=== PATIENT | female | born 1960 | race Caucasian/White ===

== ENCOUNTER → 2019-10-28 11:55 | Outpatient (BNVA) | payer OTHER, SELFPAY | PROVIDERS: Family Provider Nurse Practitioner; PCP Nurse Practitioner; Visit Provider Nurse Practitioner | DX: Z79.01 Long term (current) use of anticoagulants (principal); E78.2 Mixed hyperlipidemia; I10 Essential (primary) hypertension; E55.9 Vitamin D deficiency, unspecified; D69.9 Hemorrhagic condition, unspecified | CPT/HCPCS: 36416; 85610 ==

== ENCOUNTER → 2019-11-25 13:03 | Outpatient (BNVA) | payer OTHER, SELFPAY | PROVIDERS: Family Provider Nurse Practitioner; PCP Nurse Practitioner; Visit Provider Nurse Practitioner | DX: D69.9 Hemorrhagic condition, unspecified (principal) | CPT/HCPCS: 85610 ==

== ENCOUNTER → 2019-12-20 16:39 | Outpatient (BNVA) | payer OTHER, SELFPAY | PROVIDERS: Family Provider Nurse Practitioner; PCP Nurse Practitioner; Visit Provider Nurse Practitioner | DX: J98.01 Acute bronchospasm (principal); I10 Essential (primary) hypertension; R05 Cough; Z79.01 Long term (current) use of anticoagulants | CPT/HCPCS: 80053; 80061; 85025; 85610; 87804 ==

== ENCOUNTER → 2019-12-30 14:43 | Outpatient (BNVA) | payer OTHER, SELFPAY | PROVIDERS: Family Provider Nurse Practitioner; PCP Nurse Practitioner; Visit Provider Nurse Practitioner | DX: R05 Cough (principal); I51.7 Cardiomegaly | CPT/HCPCS: 71046 ==

== ENCOUNTER → 2020-02-10 11:52 | Outpatient (BNVA) | payer OTHER, SELFPAY | PROVIDERS: Family Provider Nurse Practitioner; PCP Nurse Practitioner; Visit Provider Nurse Practitioner | DX: Z79.01 Long term (current) use of anticoagulants (principal); Z86.718 Personal history of other venous thrombosis and embolism; H81.319 Aural vertigo, unspecified ear; I10 Essential (primary) hypertension | CPT/HCPCS: 85610 ==

== ENCOUNTER → 2020-04-13 17:38 | Outpatient (BNVA) | payer OTHER, SELFPAY | PROVIDERS: Family Provider Nurse Practitioner; PCP Nurse Practitioner; Visit Provider Nurse Practitioner | DX: R10.9 Unspecified abdominal pain (principal); I51.7 Cardiomegaly | CPT/HCPCS: 80053; 81003; 85025 ==

== ENCOUNTER → 2022-08-20 08:06 | Outpatient (BNVA) | payer OTHER, SELFPAY | PROVIDERS: Family Provider Nurse Practitioner; PCP Nurse Practitioner; Visit Provider Orthopaedic Surgery | DX: M17.0 Bilateral primary osteoarthritis of knee (principal) | CPT/HCPCS: 73560; 73565 ==

== ENCOUNTER 2022-09-18 11:52 | Outpatient (CLI) | payer OTHER, SELFPAY | END 2022-09-18 11:53 | disposition home or self-care (01) | LOC: RT 11-04 11:54 | PROVIDERS: PCP Nurse Practitioner; Visit Provider Orthopaedic Surgery | DX: Z13.6 Encounter for screening for cardiovascular disorders (principal) | CPT/HCPCS: 93005 ==

== ENCOUNTER 2022-09-25 14:30 | Outpatient (CLI) | payer OTHER, SELFPAY ==
--- NOTE | 2022-09-25 16:30 | CT_ITS ---
WS: [id number] CT LEFT KNEE, NONCONTRAST TECHNIQUE: Noncontrast CT of the LEFT knee to include the LEFT hip and ankle. CLINICAL INFORMATION: pre op planning COMPARISON: None. DLP: 739.[address] scans at [facility] use at least one of these dose optimization techniques: automated e xposure control; mA and/or kV adjustment per patient size (includes targeted exams where dose is matc hed to clinical indication); or iterative reconstruction. FINDINGS: Mild degenerative narrowing both hips. Advanced degenerative arthritis LEFT knee with hypertrophic sp urring. Hypertrophic patella. Moderate joint effusion. Joint space narrowing worse the medial joint c ompartment with [id number] articulation. Mild degenerative arthritis LEFT ankle. Vascular calcifica tion. Prominent abdominal wall/pelvic wall varices visualized in the lower anterior pelvic subcutaneo us soft tissues. CT/CT knee [facility] IMPRESSION: Images obtained for preoperative purposes.
== END 2022-09-25 14:31 | disposition home or self-care (01) ==
LOC: RAD 14:30
PROVIDERS: PCP Nurse Practitioner; Visit Provider Orthopaedic Surgery
DX: Z01.818 Encounter for other preprocedural examination (principal); M17.0 Bilateral primary osteoarthritis of knee
CPT/HCPCS: 73700

== ENCOUNTER 2022-09-30 10:25 | Observation (INO) | payer OTHER, SELFPAY ==
--- NOTE | 2022-09-18 10:33 | ECG_ITS ---
[facility] Test Date: 2022-09-18 Pat Name: Concetta Velasco Department: Room: Gender: Female Stone Splitter: : 1960 Requested By: Andry Kunz Order Number: [id number] Griffin MD: Vandana Scruggs M.D. Measurements Intervals [place] Rate: 63 P: 14 VT: 191 QRS: -12 QRSD: 90 T: -3 QT: 384 QTc: 394 Interpretive Statements SINUS RHYTHM LOW QRS VOLTAGE IN PRECORDIAL LEADS [QRS DEFLECTION < 1.0 mV IN CHEST LEADS] POSSIBLE RIGHT VENTRICULAR CONDUCTION DELAY [RSR (QR) IN V1/V2] POSSIBLE ANTERIOR MYOCARDIAL INFARCTION , OF INDETERMINATE AGE [30 ms Q WAVE IN V3/V4, OR R < 0.2 mV IN V4] No previous ECG available for comparison Electronically Signed On 09-19-2022 12:45:12 SECURITY FLEX UTILITY OFFICER by Vandana Scruggs M.D. [id number]
[2022-09-18 10:37] LABS: Basophils # 0.1 10^3/uL (0.0-0.1); Eosinophils # 0.1 10^3/uL (0.0-0.8); Eosinophils % 1.8 %; Hemoglobin 12.6 g/dL (11.5-15.3); Lymphocytes # 1.6 10^3/uL (0.8-4.8); Lymphocytes % 30.9 %; Mean Corpuscular HGB Conc 31.5 g/dL (30.0-36.0); Mean Corpuscular Hemoglobin 26.9 pg (28.0-34.0); Mean Corpuscular Volume 85.3 fl (81-99); Mean Platelet Volume 9.8 fL (7.4-10.4); Monocytes # 0.4 10^3/uL (0.2-0.9); Neutrophils # 2.97 10^3/uL (1.8-7.7); Neutrophils % 59.1 %; Nucleated Red Blood Cells % 0 %; Platelet Count 225 10^3/cmm (130-400); Red Blood Count 4.69 10^6/uL (4.1-5.3); Red Cell Distribution Width 13.5 % (12.1-15.1)
[2022-09-18 10:48] LABS: INR 0.98 (0.8-1.2)
[2022-09-18 10:55] LABS: Anion Gap 15.4 (5-19); Blood Urea Nitrogen 11 mg/dL (8-23); Calcium 9.7 mg/dL (8.5-10.5); Carbon Dioxide 27 mmol/L (22-29); Chloride 102 mmol/L (98-107); Glomerular Filtration Rate 72.9 mL/min (90-130); Glucose 88 mg/dL (65-115); Osmolality Calculated 289 mOsm/kg (285-295); Potassium 4.4 mmol/L (3.5-5.1); Sodium 140 mmol/L (136-145)
--- NOTE | 2022-09-18 13:10 | ANES.PREANE2 ---
Pre-Anesthetic Assessment Height/Weight: Height 1.65 m Weight 113.398 kg Operation Date: 09/30/22 10:05 Proposed Procedures p Jonas Robot Left Total Knee Arthroplasty 67021,M17.0(Left) - Yang Alvarez MD Familial anesthetic complications: none Was Beta Suzie taken within 24 hours: N/A Was Clonidine taken within 24 hours: N/A Social No alcohol and No tobacco Exam alert, oriented x 3, clear to auscultation bilaterally and regular rate & rhythm Airway Submandibular: within normal limits Cervical ROM: within normal limits Mallampati: Class II CV/HEM Deep Vein Thrombosis (h/o 20yrs ago) and Hypertension GI Gastroesophageal Reflux Disease Metabolic Hyperlipidemia and Morbid Obesity [facility] Osteoarthritis/DJD Anesthetic Plan ASA status: 3 Anesthesia: Regional (specify below) (SAB with adductor blk) Medications/Allergies Home Medications Medication Instructions Recorded Confirmed Last Taken Type lisinopril 20 1 tab PO DAILY #30 tabs 02/10/20 09/18/22 09/18/22 Rx mg-hydrochlorothiazide 12.5 mg tablet warfarin 4 mg tablet (Coumadin) 5 mg PO DAILY 08/20/22 09/18/22 09/17/22 History pantoprazole 40 mg tablet,delayed 40 mg PO DAILY 09/18/22 09/18/22 09/18/22 History release Allergies Allergy/AdvReac Type Severity Reaction Status Date / Time No Known Allergies Allergy Verified 08/20/22 07:59 [facility] Anesthesia Medical History (Updated 08/20/22 @ 08:39 by Yang Alvarez MD) Anticoagulant long-term use History of DVT (deep vein thrombosis) Hypertension Mixed hyperlipidemia Vitamin D deficiency Surgical History History of knee surgery Repair 1983 Family History Other Hypertension Social History Smoking and tobacco status: never smoked Second hand smoke exposure: Yes Smoking risk assessment/counseling performed?: Yes Alcohol intake: never Desire information about alcohol rehabilitation?: No Counseling given: No Desire information about substance/drug rehabilitation?: No Counseling given: No Adopted: No Caregiver/support person: No Lives independently: Yes Household members: spouse Housing: House Marital status: service: No Current occupational status: employed Current occupation: [employer] History of recent travel: No Current gender identity: Female Data Anesthesia 09/18/22 10:27 09/18/22 10:27 Short CBC 09/18/22 Range/Units 10:27 WBC 5.0 (4.0-10.0) 10^3/uL Hgb 12.6 (11.5-15.3) g/dL Hct 40.0 (37.0-47.0) % MCV 85.3 (81-99) fl Plt Count 225 (130-400) 10^3/cmm Neut % (Auto) 59.1 % Neut # (Auto) 2.97 (1.8-7.7) 10^3/uL BMP 09/18/22 10:27 Sodium 140 Potassium 4.4 Chloride 102 Carbon Dioxide 27 BUN 11 Creatinine 0.8 Glucose 88 Calcium 9.7 Coags 09/18/22 10:27 PT 13.30 INR 0.98 Cardiac Studies: No Data to Display
[2022-09-30] VITALS (20 sets, daily range): BP systolic 81–148; BP diastolic 46–83; PULSE 60–82; RESP 14–20; TEMP 36.1–36.6; O2SAT 94–100; BMI 41.3
[2022-09-30] MEDS: oxyCODONE 20 mg ER (12 HR) Tablet PO (06:52)
[2022-09-30] MEDS: sodium chloride 0.9% 1,000 ML 30 ML IV (06:52)
[2022-09-30] MEDS: gabapentin 300 mg Capsule PO ×2 (06:53→17:20)
[2022-09-30] MEDS: acetaminophen 500 mg Tablet 1000 MG PO ×2 (06:53→18:16)
[2022-09-30] MEDS: CELEcoxib 200 mg Capsule 400 MG PO (06:53)
[2022-09-30 07:01] LABS: INR 1.01 (0.8-1.2)
--- NOTE | 2022-09-30 07:07 | P.HP_ITS ---
Same Day Surgery H&P Indication for Procedure/HPI DATE OF PROCEDURE: September 30, 2022 CHIEF COMPLAINT/INDICATIONFOR SURGICAL PROCEDURE: Osteoarthritis left knee PREOP DIAGNOSIS: Osteoarthritis left knee PLANNED PROCEDURE: Operation Date: 09/30/22 07:00 Proposed Procedures p Jonas Robot Left Total Knee Arthroplasty 59203,M17.0(Left) - Yang Alvarez MD She states that she has had pain for approximately 3 years with no known injury.? He states the pain is generally symmetrical.? She states that her pain is in the anterior knee. She has pain with prolonged standing, walking, and bending. She states that she has been avoiding stairs, as it is significantly painful.? He states she is unable to do any walking much more than a few 100 yards.? 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 She has been taking Tylenol and Ibuprofen as needed for pain, which does not give her any relief.? She has a history of a deep venous thromboses in her right lower extremity 30 years ago and has been on Coumadin ever since.? She denies any pulmonary emboli and denies any studies documenting progression of her veinous disease.? He states a medical work-up was done and there was no medical cause for thromboembolic disease.? He does not take anti- inflammatories due to her chronic anticoagulation. Medications/Allergies* Home Medications Medication Instructions Recorded Confirmed Type warfarin 4 mg tablet (Coumadin) 5 mg PO DAILY 08/20/22 09/18/22 History pantoprazole 40 mg tablet,delayed 40 mg PO DAILY 09/18/22 09/18/22 History release Allergies/Adverse Reactions Allergy/AdvReac Type Severity Reaction Status Date / Time No Known Allergies Allergy Verified 08/20/22 07:59 Current Medications: Generic Name Dose Route Start Last Admin Trade Name Freq PRN Reason Stop Dose Admin Sodium Chloride 1,000 mls @ 30 mls/hr 09/30/22 06:00 09/30/22 06:52 Sodium Chloride 0.9% IV 10/01/22 05:59 30 mls/hr .Q24H ALBERTO Administration Pertinent History/Comorbid Conditions* Medical History (Updated 08/20/22 @ 08:39 by Yang Alvarez MD) Anticoagulant long-term use History of DVT (deep vein thrombosis) Hypertension Mixed hyperlipidemia Vitamin D deficiency Surgical History (Updated 12/20/19 @ 17:04 by MICK Martínez) History of knee surgery Repair 1982 Family History (Updated 12/20/19 @ 16:31 by KAY Yee) Hypertension Social History Smoking and tobacco status: never smoked Second hand smoke exposure: Yes Smoking risk assessment/counseling performed?: Yes Alcohol intake: never Desire information about alcohol rehabilitation?: No Counseling given: No Desire information about substance/drug rehabilitation?: No Counseling given: No Adopted: No Caregiver/support person: No Lives independently: Yes Household members: spouse Housing: House Marital status: service: No Current occupational status: employed Current occupation: [employer] History of recent travel: No Current gender identity: Female Pertinent Exam Findings alert, oriented x 3, clear to auscultation bilaterally and regular rate & rhythm KNEE LEFT] Tender bilateral medial knees and fairly diffuse tenderness about the right leg. RANGE OF MOTION: ? ? ? LEFT LIMB ? Extension:[15] ? Flexion: [70] Patellas track well Patient collateral ligaments are stable Stronger dorsalis pedis pulses bilaterally. MOTOR: Strong quadriceps hamstrings tibialis anterior and extensor houses longus strength SENSATION: Intact to light touch Recommendations Surgery/Procedure today Coding Level of Care Code Acute Employment Specialist/Program Manager for [employer]
--- NOTE | 2022-09-30 07:12 | P.ANESUD_ITS ---
Pre-Anesthetic Update Pre-Anesthetic Assessment: Date of Surgery/Procedure: 09/30/22 Preop Dodie gnosis: Osteoarthritis left knee Proposed Procedure: Operation Date: 09/30/22 07:00 Proposed Procedures p Jonas Robot Left Total Knee Arthroplasty 17135,M17.0(Left) - Yang Alvarez MD Any changes to Pre-Anesthetic Assessment?: No Last Intake: Intake Last Liquid Date 09/29/22 Last Liquid Time 23:45 Last Solid Date 09/29/22 Last Solid Time 13:30 Labs Last 48hrs: Coags 09/30/22 06:42 PT 13.60 INR 1.01 Vitals: Temperature 97.0 F L 09/30/22 06:31 Temperature Source Temporal Artery S can 09/30/22 06:31 Pulse Rate 76 09/30/22 06:31 Pulse Rhythm 09/30/22 06:35 Pulse Strength 3+ Normal 09/30/22 06:35 Respiratory Rate 18 09/30/22 06:31 Blood Pressure 148/83 09/30/22 06:31 Blood Pressure Cecilia n 104 09/30/22 06:31 Pulse Oximetry 98 09/30/22 06:31 Oxygen Delivery Me thod 09/30/22 06:35 Exam: Pre-Anes Outpt Exam: alert, oriented x 3, clear to auscultation bilaterally and regular rate & rhythm Other Pertinent Information: Other Pertinent Information: INR 1.01 Cardiac Studies: No Data to Display
[2022-09-30] MEDS: ceFAZolin 2,000 MG in sodium chloride 0.9% (plus) 50 ML 100 MG IV ×3 (07:30→23:07)
[2022-09-30] MEDS: tranexamic acid 1,000 mg/10mL SDV 1000 MG IV (08:10)
[2022-09-30] MEDS: tranexamic acid 1,000 mg/10mL SDV 1000 MG XX (08:31)
[2022-09-30] MEDS: ketorolac 30 mg/mL INJ XX (08:32)
[2022-09-30] MEDS: EPINEPHrine 1 mg/mL INJ XX (08:33)
--- NOTE | 2022-09-30 09:17 | ANES.PROC ---
Anesthesia Procedures Procedure/Date: 09/30/22 Nerve Block ^: Nerve Block 1: Main Anesthesia: spinal anesthesia block Time Out Performed: Yes Consent: requested by attending/covering physician, from patient, risks and benefits reviewed and patient agrees to proceed Nerve block location: adductor canal (left) Anesthesia monitors applied: pulse oximetry, EKG, BP cuff and oxygen Nerve block position: supine Anesthetic Used: ropivicaine 0.5% Amount of anesthesia used (mL): 20 Ultrasound used to: recognize landmarks Nerve Stimulator Used?: No Interscalene/Femoral BLK: 4 stimuplex 21 g needle used for position and inplane approach Injection: neg aspiration of heme Patient Tolerated Procedure: well Complications: none
--- NOTE | 2022-09-30 10:12 | PM.OP ---
Operative Report Date of procedure: September 30, 2022 Pre-op diagnosis: Preop Diagnosis Osteoarthritis left knee Post-op diagnosis: same Post-op diagnosis: Same Post-op findings: Same Procedure done: [] total knee arthroplasty Implants: [place] Triathalon total knee arthroplasty components were used includin) Size 4 triathalon cruciate retaining femoral component 2) Size 5 Tritanium tibial component 3) Size 5/9 mm thickness CS tibial bearing insert Pathology: none sent Surgeon: Yang Alvarez [employer] Operator: Александр Gutiérrez [employer] Operator: The nurse practitioner the nurse practitioner assisted with critical portions of the case including positioning, draping, exposure, component implantation, closure and dressing application and is present through the entirety of the case. Anesthesia: Nerve Block (Spinal, adductor canal block) Estimated blood loss (mL): 200 Findings: The patient eburnated bone over the medial femoral condyleand medial tibial plateau with 16 degrees of varus deformity. There was eburnation of the far lateral facet of the patella overall patellar anatomy was reasonably preserved Condition: stable Disposition: PACU Procedure: The patient was taken to the operating room. Patient was given 1 g of tranexamic acid and 2 g of Ancef. The above anesthesia provided by the anesthesia service. A timeout was performed. The patient was prepped and draped in the usual fashion with the lower extremity exposed. A anterior incision was made, midline, from a point proximal to the patella to the distal tibial tubercle. The knee was entered through a medial parapatellar approach. The patella could be displaced laterally and the knee flexed. The patellar fat pad was resected to provide better visibility. Retractors were placed medially and laterally adjacent to the tibial plateau. At a point approximately 8 cm above the patella, 2 small incisions were made with a scalpel blade and 2 long threaded pins were placed into the anterior medial femur engaging both cortices. The femoral arrays were placed over these pins and secured. At a point 8 cm distal to the tibial tubercle. 2 shorter bicortical threaded pins were placed across the anterior medial tibia and the tibial arrays placed. A checkpoint was made just proximal and medial to the medial femoral condyle and just medial to the tibial plateau. Small osteotomes were placed in the joint in both flexion and extension to determine ligamentous laxity. As the patient had significant varus deformity initially more aggressive release of all of the deep in the proximal superficial medial collateral ligament was performed. Dissection was then carried out with a Chavez elevator releasing attachments from the posterior medial tibia this allowed for a correction of the tibia to a more acceptable 4 degrees of varus. The tibia was then placed in 2 degrees of varus and the femoral component externally rotated 3 degrees, resecting slope more from the posterior medial condyle to correct imbalances and flexion.. The Advebs robot was then introduced to the field and the femur and tibia cut in accordance with our plan. he [employer] Fastseal was then used to provide hemostasis, particularly about the posterior capsule. A trial with the above components provided excellent stability and full range of motion. The femur was then prepared for the femoral pegs of the component in the tibia for the tibial component. The femur and tibia were then press-fit into place. An osteotome was used to remove the lateral 8 mm of the patella to minimize chances of later impingement. A neurectomy was accomplished circumferentially about the patella with electrocautery and lateral osteophytes removed. Surfaces were cleaned with a gentamicin solution. The femur and tibia were then press-fit into place. The posterior capsule and collateral ligaments were then injected with a solution of 100 mL of 0.2% ropivacaine, 1 mL of a 1:1000 epinephrine solution, 30 mg of Toradol, and 1 g of tranexamic acid. Final polyethylene component was then snapped into place into the tibia. The extensor retinaculum subcutaneous tissues were s closed with a running 1 Stratafix interrupted 1 Ethibond. The skin was closed with a running 4-0 Stratafix. The wound was covered with a Dermabond Prineo dressing. It was covered with 4xrs and a compressive Tubigauze was applied. The patient was taken to recovery room in stable condition.
--- NOTE | 2022-09-30 10:22 | XR_ITS ---
WS: [id number] EXAMINATION: XR knee LT 1-2V 38929 DATE: 09/30/2022 10:34 AM CLINICAL HISTORY: Recent total knee arthroplasty TECHNIQUE: 2 views of the left knee were obtained. COMPARISON: 08/20/2022 X-RAY FINDINGS: Left total knee prosthetic components appear in satisfactory position. There is intra -articular gas, periarticular soft tissue gas and postsurgical soft tissue edema. Linear calcificatio n posteriorly unchanged from prior study. XR/XR knee LT 1-2V 82621 IMPRESSION: Satisfactory postsurgical appearance of left total knee arthroplasty.
[2022-09-30] MEDS: sodium chloride 0.9% 1,000 ML 999 ML IV (13:33)
[2022-09-30] MEDS: oxyCODONE 5 mg IR Tab/Cap PO (14:36)
--- NOTE | 2022-09-30 15:14 | ANE.PACU2 ---
Inpatient post-anesthesia follow up: Airway intact: Yes Vital signs: Temperature 97.5 F Pulse Rate 71 Respiratory Rate 18 Blood Pressure 97/56 Pulse Oximetry 100 Oxygen Delivery Me thod Room Air Oxygen Flow Rate 6 Fraction of Inspir ed Oxygen Hydration adequate: Yes Nausea and vomiting: No Pain level: 2 Mental status: Baseline
--- NOTE | 2022-09-30 21:08 | PC.NURSE ---
No complaints of pain from patient. Surgical incision clean dry and intact. Pedal pulses 2+, extremities warm. Patient reports several voids post-surgery. Patient educated to press call light if patient has any needs, and had no further needs at this time.
[2022-09-30] MEDS: CELEcoxib 200 mg Capsule PO (23:06)
[2022-10-01] VITALS: BP 105/65; PULSE 67; RESP 16; TEMP 36.6; O2SAT 96
[2022-10-01] MEDS: acetaminophen 500 mg Tablet 1000 MG PO (02:58)
[2022-10-01 04:00] VITALS: BP 116/67; PULSE 67; RESP 16; TEMP 36.6; O2SAT 97
[2022-10-01] MEDS: ceFAZolin 2,000 MG in sodium chloride 0.9% (plus) 50 ML 100 MG IV (06:30)
--- NOTE | 2022-10-01 06:52 | P.DS_ITS ---
Discharge Providers Date of Admission: 09/30/22 10:25 Date of Discharge: October 01, 2022 Attending Provider at Admission: Yang Alvarez MD Attending Provider at Discharge: Yang Alvarez MD Primary Care Provider: MICK Martínez Diagnoses at Discharge Discharge Diagnosis (1) Status post left knee replacement: Status: Acute (2) Degenerative joint disease of left knee: Status: Acute (3) History of DVT (deep vein thrombosis): Status: Chronic Reason for Visit Reason for Visit: M17.0 Hospital Course Hospital Course The patient tolerated surgery well. They remained hemodynamically stable. They was Coumadin and foot pumps for DVT prophylaxis. The patient was mobilized with therapy beginning the day of surgery and by the first postoperative day independent with the walker. As the pain was adequately controlled and they were fully mobile they were discharged home. Physical Exam Narrative: On the day of discharge the knee incision was clean. They had no drainage. There is minimal swelling in the thigh and knee and the calf. No distal neurovascular deficits were noted Discharge Data Studies Completed and Pending Completed Studies During Hospitalization Category Date Time Status XR knee LT 1-2V 12833 Routine Exams 09/30/22 10:22 Completed Radiology Impressions Knee X-Ray 09/30/22 10:22 IMPRESSION: Satisfactory postsurgical appearance of left total knee arthroplasty. Laboratory Results WBC 5.0 10^3/uL (4.0-10.0) 09/18/22 10:27 RBC 4.69 10^6/uL (4.1-5.3) 09/18/22 10:27 Hgb 11.0 g/dL (11.5-15.3) L 10/01/22 01:01 Hct 40.0 % (37.0-47.0) 09/18/22 10:27 MCV 85.3 fl (81-99) 09/18/22 10:27 MCH 26.9 pg (28.0-34.0) L 09/18/22 10:27 MCHC 31.5 g/dL (30.0-36.0) 09/18/22 10:27 RDW 13.5 % (12.1-15.1) 09/18/22 10:27 Plt Count 225 10^3/cmm (130-400) 09/18/22 10:27 MPV 9.8 fL (7.4-10.4) 09/18/22 10:27 Neut % (Auto) 59.1 % 09/18/22 10:27 Lymph % (Auto) 30.9 % 09/18/22 10:27 Bradley % (Auto) 7.0 % 09/18/22 10:27 Eos % (Auto) 1.8 % 09/18/22 10:27 Baso % (Auto) 1.0 % 09/18/22 10:27 Neut # (Auto) 2.97 10^3/uL (1.8-7.7) 09/18/22 10:27 Lymph # (Auto) 1.6 10^3/uL (0.8-4.8) 09/18/22 10:27 Bradley # (Auto) 0.4 10^3/uL (0.2-0.9) 09/18/22 10:27 Eos # (Auto) 0.1 10^3/uL (0.0-0.8) 09/18/22 10:27 Baso # (Auto) 0.1 10^3/uL (0.0-0.1) 09/18/22 10:27 Nucleated RBC % (auto) 0 % 09/18/22 10:27 Nucleated RBCs # 0.0 /100WBC 09/18/22 10:27 PT 13.60 SECONDS (12.1-14.9) 09/30/22 06:42 INR 1.01 (0.8-1.2) 09/30/22 06:42 Sodium 140 mmol/L (136-145) 09/18/22 10:27 Potassium 4.4 mmol/L (3.5-5.1) 09/18/22 10:27 Chloride 102 mmol/L (98-107) 09/18/22 10:27 Carbon Dioxide 27 mmol/L (22-29) 09/18/22 10:27 Anion Gap 15.4 (5-19) 09/18/22 10:27 BUN 11 mg/dL (8-23) 09/18/22 10:27 Creatinine 0.8 mg/dL (0.5-0.9) 09/18/22 10:27 GFR Calculation 72.9 mL/min (90-130) L 09/18/22 10:27 Glucose 88 mg/dL (65-115) 09/18/22 10:27 Calculated Osmolality 289 mOsm/kg (285-295) 09/18/22 10:27 Calcium 9.7 mg/dL (8.5-10.5) 09/18/22 10:27 Vitals Last Vital Signs Temp 98 F 10/01/22 04:00 Pulse 67 10/01/22 04:00 Resp 16 10/01/22 04:00 BP 116/67 10/01/22 04:00 Pulse Ox 97 10/01/22 04:00 O2 Del Method 09/30/22 19:49 O2 Flow Rate 6 09/30/22 10:28 Discharge Plan Discharge Patient Disposition: Home Condition: Stable Prescriptions: New oxycodone 5 mg Tablet 5 mg PO Q4H PRN (Reason: Moderate Pain) 7 Days Qty: 40 0RF acetaminophen 500 mg Tablet 1,000 mg PO Q8H 14 Days Qty: 84 0RF celecoxib 200 mg Capsule 200 mg PO Q12H 14 Days Qty: 28 0RF gabapentin 300 mg Capsule 300 mg PO BID 7 Days Qty: 14 0RF Continued lisinopril-hydrochlorothiazide 20-12.5 mg tablet 1 tab PO DAILY Qty: 30 2RF warfarin [Coumadin] 4 mg tablet 5 mg PO DAILY pantoprazole 40 mg tablet,delayed release (DR/EC) 40 mg PO DAILY Discharge Orders: Discharge Order (Routine); Ordered 10/01/22 Ordered By: Yang Alvarez Other Ambulatory Orders: Physical Therapy Eval and Treat Outpatient (Order) Timeframe: 2 Weeks Facility: [facility] - Location: Physical Therapy Ordered By: Yang Alvarez Referrals: Александр Gutiérrez FNP [Physician Collection Specialist] - 2 weeks Discharge Diet: Advance as tolerated Discharge Activity: Limit activity as instructed Patient Instructions: Opioid Safety Activity Restrictions/Additional Instructions: Okay to shower as long as incision free of drainage Keep Tubigauze sleeve in place for swelling. Remove top dressing in 48 hours. Leave skin glue in place Apply FirstIce up to 20 min/hr for pain and swelling Take Celebrex twice a day for the next 15 days for pain , discontinue other anti-inflammatories Take Neurontin twice a day for 7 days. Take Tylenol 500mg (2 tabs) as needed 3 times a day for mild pain take oxycodone for breakthrough pain. Exercises per physical therapy. May weight-bear as tolerated on total knee arthroplasty IF HAVE ANY PROBLEMS OR QUESTIONS CALL HOSPITAL BOAT OUTBOARD ENGINE MECHANIC AT AND ASK TO HAVE DR. SURY TUCKER. Discharge Attestations Time Spent in Discharge Care*: other Quality Metrics Clinical Quality Measures [ No reported AMI, CVA or VTE this stay] Coding Level of Care Code Acute Chg FW DC note Diagnoses Status post left knee replacement Z96.652 Degenerative joint disease of left knee M17.12 History of DVT (deep vein thrombosis) Z86.712
[2022-10-01 09:20] VITALS: BP 116/67; PULSE 67; RESP 16; TEMP 36.6; O2SAT 97
[2022-10-01 10:02] VITALS: PULSE 73; RESP 16; O2SAT 96
[2022-10-01] MEDS: warfarin 2.5 mg Tablet 5 MG PO (10:28)
[2022-10-01] MEDS: lisinopril 20 mg Tablet PO (10:28)
[2022-10-01] MEDS: pantoprazole DR 40 mg Tablet PO (10:28)
[2022-10-01] MEDS: gabapentin 300 mg Capsule PO (10:28)
[2022-10-01] MEDS: hydroCHLOROthiazide 25 mg Tablet PO (10:28)
== END 2022-10-01 12:00 | disposition home or self-care (01) ==
LOC: MEDSURG 10:25
PROVIDERS: Anesthesiology; Admitting Provider Orthopaedic Surgery; PCP Nurse Practitioner; Visit Provider Orthopaedic Surgery
PROC: 8E0Y0CZ Robotic Assisted Procedure of Lower Extremity, Open Approach (ICD-10-PCS; CPT 27447; principal; 2022-09-30 07:00)
DX: M17.12 Unilateral primary osteoarthritis, left knee (principal); Z86.718 Personal history of other venous thrombosis and embolism; I10 Essential (primary) hypertension; E66.01 Morbid (severe) obesity due to excess calories; Z68.41 Body mass index [BMI] 40.0-44.9, adult; Z79.01 Long term (current) use of anticoagulants; E78.2 Mixed hyperlipidemia; K21.9 Gastro-esophageal reflux disease without esophagitis
CPT/HCPCS: 27447; 36415; 73560; 80048; 85018; 85025; 85610; 97110; 97116; 97161; 97165; A9281; C1776; G0378; J0171; J0690; J1580; J1885; J2704; J2795; J3490; J3535; J7030

== ENCOUNTER → 2022-11-13 08:05 | Outpatient (BNVA) | payer OTHER, SELFPAY | PROVIDERS: PCP Nurse Practitioner; Visit Provider Nurse Practitioner Family | DX: Z96.652 Presence of left artificial knee joint (principal) | CPT/HCPCS: 73560; 73565 ==

== ENCOUNTER → 2023-02-11 08:07 | Outpatient (BNVA) | payer OTHER, SELFPAY | PROVIDERS: PCP Nurse Practitioner; Visit Provider Nurse Practitioner Family | DX: Z96.652 Presence of left artificial knee joint (principal); M17.11 Unilateral primary osteoarthritis, right knee | CPT/HCPCS: 73560; 73565 ==

== ENCOUNTER → 2023-03-04 14:38 | Outpatient (BNVA) | payer OTHER, SELFPAY | PROVIDERS: PCP Nurse Practitioner; Visit Provider Orthopaedic Surgery | DX: M17.11 Unilateral primary osteoarthritis, right knee (principal); Z96.652 Presence of left artificial knee joint | CPT/HCPCS: 80048; 85025 ==

== ENCOUNTER → 2023-03-06 10:48 | Outpatient (BNVA) | payer OTHER, SELFPAY | PROVIDERS: PCP Nurse Practitioner; Visit Provider Clinical Nurse Specialist Adult Health | DX: Z79.01 Long term (current) use of anticoagulants (principal) | CPT/HCPCS: 85610 ==

== ENCOUNTER 2023-03-20 07:36 | Outpatient (CLI) | payer OTHER, SELFPAY ==
--- NOTE | 2023-03-20 07:30 | CT_ITS ---
WS: [id number] CT RIGHT KNEE, NONCONTRAST TECHNIQUE: Noncontrast CT of the RIGHT knee to include the RIGHT hip and ankle. [facility] CLINICAL INFORMATION: pre op planning COMPARISON: None. DLP: 948.[address] scans at [facility] use at least one of these dose optimization techniques: automated e xposure control; mA and/or kV adjustment per patient size (includes targeted exams where dose is matc hed to clinical indication); or iterative reconstruction. FINDINGS: Mild degenerative arthritis both hips. Normal visualized pubic rami. Normal sigmoid colon. Sigmoid di verticulosis. Small to moderate suprapatellar effusion. Advanced osteoarthritis RIGHT knee worse medi al joint compartment. Hypertrophic patella. Hypertrophic changes along the joint line. Vascular calci fication. Soft tissue edema about the knee. CT/CT knee RT wo con* [id number] IMPRESSION: Images obtained for preoperative purposes.
== END 2023-03-20 07:37 | disposition home or self-care (01) ==
PROVIDERS: Visit Provider Orthopaedic Surgery
DX: M17.11 Unilateral primary osteoarthritis, right knee (principal)
CPT/HCPCS: 73700

== ENCOUNTER 2023-03-31 13:15 | Observation (INO) | payer OTHER, SELFPAY ==
[2023-03-20 09:08] VITALS: BMI 41.1
--- NOTE | 2023-03-20 17:09 | P.ANESASSM_ITS ---
Pre-Anesthetic Assessment Height/Weight: Height 1.65 m Weight 112.037 kg Operation Date: 03/31/23 10:05 Proposed Procedures p right total knee makoplasty/ 22523, M17.11(Right) - Yang Alvarez MD Familial anesthetic complications: none Was Beta Suzie taken within 24 hours: N/A Was Clonidine taken within 24 hours: N/A Social No alcohol and No tobacco Exam alert, oriented x 3, clear to auscultation bilaterally and regular rate & rhythm Airway Submandibular: within normal limits Cervical ROM: within normal limits Mallampati: Class II Dentition: full CV/HEM Deep Vein Thrombosis and Hypertension GI Gastroesophageal Reflux Disease Metabolic Hyperlipidemia and Morbid Obesity [facility] Osteoarthritis/DJD Anesthetic Plan ASA status: 3 Anesthesia: Regional (specify below) (SAB with adductor blk) Medications/Allergies Home Medications Medication Instructions Recorded Confirmed Last Taken Type lisinopril 20 1 tab PO DAILY #30 tabs 02/10/20 03/20/23 03/20/23 Rx mg-hydrochlorothiazide 12.5 mg tablet warfarin 4 mg tablet (Coumadin) 5 mg PO DAILY 08/20/22 03/20/23 03/19/23 History pantoprazole 40 mg tablet,delayed 40 mg PO DAILY 09/18/22 03/20/23 03/19/23 History release Allergies Allergy/AdvReac Type Severity Reaction Status Date / Time No Known Allergies Allergy Verified 03/06/23 09:59 [facility] Anesthesia Medical History (Updated 03/06/23 @ 13:41 by Teddy Butler NP) Anticoagulant long-term use DVT (deep venous thrombosis) Provoked DVT 30 years ago History of DVT (deep vein thrombosis) Hypertension Mixed hyperlipidemia Vitamin D deficiency Surgical History History of knee surgery Repair 1983 Status post left knee replacement Family History (Updated 03/06/23 @ 10:00 by Teddy Butler NP) Other Hypertension Denies family history of Clotting disorder Anesthesia complication Stroke Social History Smoking and tobacco status: never smoked Second hand smoke exposure: Yes Smoking risk assessment/counseling performed?: Yes Alcohol intake: never Desire information about alcohol rehabilitation?: No Counseling given: No Substance/Drug Use: never Desire information about substance/drug rehabilitation?: No Counseling given: No Adopted: No Caregiver/support person: No Lives independently: Yes Household members: spouse Housing: House Marital status: service: No Current occupational status: employed Current occupation: [employer] Do you think of yourself as: Straight/Heterosexual Current gender identity: Female Data Anesthesia Cardiac Studies: No Data to Display
[2023-03-31] VITALS (15 sets, daily range): BP systolic 104–146; BP diastolic 54–83; PULSE 61–84; RESP 12–18; TEMP 36.1–36.7; O2SAT 94–100; BMI 41.1
[2023-03-31] MEDS: sodium chloride 0.9% 1,000 ML 30 ML IV (08:51)
[2023-03-31] MEDS: gabapentin 300 mg Capsule PO ×2 (08:52→17:42)
[2023-03-31] MEDS: oxyCODONE 20 mg ER (12 HR) Tablet PO (08:52)
[2023-03-31] MEDS: CELEcoxib 200 mg Capsule 400 MG PO (08:52)
[2023-03-31] MEDS: acetaminophen 500 mg Tablet 1000 MG PO ×2 (08:53→16:29)
--- NOTE | 2023-03-31 09:24 | P.ANESUD_ITS ---
Pre-Anesthetic Update Pre-Anesthetic Assessment: Date of Surgery/Procedure: 03/31/23 Preop Dodie gnosis: Osteoarthritis right knee Proposed Procedure: Operation Date: 03/31/23 10:05 Proposed Procedures p right total knee makoplasty/ 62137, M17.11(Right) - Yang Alvarez MD Any changes to Pre-Anesthetic Assessment?: No Last Intake: Intake Last Liquid Date 03/30/23 Last Liquid Time 22:00 Last Solid Date 03/30/23 Last Solid Time 21:45 Vitals: Temperature 97 F L 03/31/23 08:30 Temperature Source Temporal Artery S can 03/31/23 08:30 Pulse Rate 69 03/31/23 08:30 Respiratory Rate 16 03/31/23 08:30 Blood Pressure 146/83 03/31/23 08:30 Blood Pressure Cecilia n 104 03/31/23 08:30 Pulse Oximetry 95 03/31/23 08:30 Oxygen Delivery Me thod Room Air 03/31/23 08:30 Exam: Pre-Anes Outpt Exam: alert, oriented x 3, clear to auscultation bilaterally and regular rate & rhythm Cardiac Studies: No Data to Display
--- NOTE | 2023-03-31 09:24 | ANES.PROC ---
Anesthesia Procedures Procedure/Date: 03/31/23 Nerve Block ^: Nerve Block 1: Main Anesthesia: spinal anesthesia block Time Out Performed: Yes Consent: requested by attending/covering physician, from patient, from other, risks and benefits reviewed and patient agrees to proceed Nerve block location: adductor canal (R) Anesthesia monitors applied: pulse oximetry, EKG, BP cuff and oxygen Nerve block position: supine Anesthetic Used: ropivicaine 0.5% (30 ml) and with decadron (4 mg) Ultrasound used to: recognize landmarks and visualize and ID femerol nerve Nerve Stimulator Used?: No Interscalene/Femoral BLK: 4 stimuplex 21 g needle used for position and inplane approach, visualize local anesthetic spread and no vascular puncture identified Injection: neg aspiration of heme Patient Tolerated Procedure: well Complications: none
--- NOTE | 2023-03-31 09:57 | P.HP_ITS ---
Same Day Surgery H&P Indication for Procedure/HPI DATE OF PROCEDURE: March 31, 2023 CHIEF COMPLAINT/INDICATIONFOR SURGICAL PROCEDURE: Osteoarthritis right knee here for right total knee arthroplasty PREOP DIAGNOSIS: Osteoarthritis right knee PLANNED PROCEDURE: Operation Date: 03/31/23 10:05 Proposed Procedures p right total knee makoplasty/ 00860, M17.11(Right) - Yang Alvarez MD 2-year-old female known for elective left total knee arthroplasty on 09/30/2022. Complains of persistent right knee pain that is functionally limiting. Here for right total knee arthroplasty Medications/Allergies* Home Medications Medication Instructions Recorded Confirmed Type warfarin 4 mg tablet (Coumadin) 5 mg PO DAILY 08/20/22 03/31/23 History pantoprazole 40 mg tablet,delayed 40 mg PO DAILY 09/18/22 03/31/23 History release Allergies/Adverse Reactions Allergy/AdvReac Type Severity Reaction Status Date / Time No Known Allergies Allergy Verified 03/06/23 09:59 Current Medications: Generic Name Dose Route Start Last Admin Trade Name Freq PRN Reason Stop Dose Admin Sodium Chloride 1,000 mls @ 30 mls/hr 03/31/23 08:30 03/31/23 08:51 Sodium Chloride 0.9% IV 04/01/23 08:29 30 mls/hr .Q24H ALBERTO Administration Pertinent History/Comorbid Conditions* Medical History (Updated 03/06/23 @ 13:41 by Teddy Butler NP) Anticoagulant long-term use DVT (deep venous thrombosis) Provoked DVT 30 years ago History of DVT (deep vein thrombosis) Hypertension Mixed hyperlipidemia Vitamin D deficiency Surgical History (Updated 03/06/23 @ 10:00 by Teddy Butler NP) History of knee surgery Repair 1983 Status post left knee replacement Family History (Updated 03/06/23 @ 10:00 by eTddy Butler NP) Hypertension Denies family history of Clotting disorder Anesthesia complication Stroke Social History Smoking and tobacco status: never smoked Second hand smoke exposure: Yes Smoking risk assessment/counseling performed?: Yes Alcohol intake: never Desire information about alcohol rehabilitation?: No Counseling given: No Substance/Drug Use: never Desire information about substance/drug rehabilitation?: No Counseling given: No Adopted: No Caregiver/support person: No Lives independently: Yes Household members: spouse Housing: House Marital status: service: No Current occupational status: employed Current occupation: [employer] Do you think of yourself as: Straight/Heterosexual Current gender identity: Female Pertinent Exam Findings alert, oriented x 3, clear to auscultation bilaterally, regular rate & rhythm and operative site marked Knee motion from full extension to 115 degrees. Tenderness over medial joint line Recommendations Surgery/Procedure today Coding Level of Care Code Acute Code for Chg Fwd Diagnoses
[2023-03-31] MEDS: ceFAZolin 2,000 MG in sodium chloride 0.9% (plus) 50 ML 100 MG IV ×2 (10:53→17:51)
[2023-03-31] MEDS: tranexamic acid 1,000 mg/10mL SDV 1000 MG IV (11:00)
[2023-03-31] MEDS: EPINEPHrine 1 mg/mL INJ XX (11:22)
[2023-03-31] MEDS: tranexamic acid 1,000 mg/10mL SDV 1000 MG XX (11:22)
[2023-03-31] MEDS: ketorolac 30 mg/mL INJ XX (11:22)
[2023-03-31] MEDS: sodium chloride 0.9% 100 mL Bag XX (11:24)
--- NOTE | 2023-03-31 12:47 | XRR_ITS ---
PROCEDURE INFORMATION: Exam: XR Right Knee Exam date and time: 03/31/2023 12:14 PM Age: 62 years old Clinical indication: Device placement; Joint replacement hardware; Prior surgery; Surgery date: Post-operative (0-2 days); Surgery type: Right total knee arthroplasty TECHNIQUE: Imaging protocol: Radiologic exam of the right knee. Views: 1 or 2 views. COMPARISON: CT knee RT wo con* [id number] 03/20/2023 7:56 AM FINDINGS: Bones/joints: There is a metallic knee right knee replacement in good position without evidence of loosening. No acute bony abnormalities seen. Soft tissues: Postoperative soft tissue edema and emphysema is seen anterior knee XR/XR knee RT 1-2V [id number] IMPRESSION: 1. Metallic knee replacement in good position. 2. Soft tissue postoperative edema and emphysema anterior knee 3. Otherwise No acute findings.
--- NOTE | 2023-03-31 12:51 | PM.OP ---
Operative Report Date of procedure: March 31, 2023 Pre-op diagnosis: Preop Diagnosis Osteoarthritis right knee Post-op diagnosis: same Post-op diagnosis: Same Post-op findings: Same Procedure done: Right total knee arthroplasty Implants: [place] Triathalon total knee arthroplasty components were used includin) Size 4 triathalon cruciate retaining femoral component 2) Size 4 Tritanium tibial component 3) Size 4/9 mm thickness CS tibial bearing insert Pathology: none sent Surgeon: Yang Alvarez Cloth Dyeing Range Tender: Александр Gutiérrez Cloth Dyeing Range Tender: The nurse practitioner the nurse practitioner assisted with critical portions of the case including positioning, draping, exposure, component implantation, closure and dressing application and is present through the entirety of the case. Anesthesia: Nerve Block (Spinal, adductor canal block) Estimated blood loss (mL): 250 Findings: The patient eburnated bone over the medial femoral condyle and medial tibial plateau. She had varus alignment that was relatively fixed requiring medial releases. There was minimal patellar chondromalacia and the patella articulated well with the trochlear groove of the femoral component. Condition: stable Disposition: PACU Procedure: The patient was taken to the operating room. Patient was given 1 g of tranexamic acid and 2 g of Ancef. The above anesthesia provided by the anesthesia service. A timeout was performed. The patient was prepped and draped in the usual fashion with the lower extremity exposed. A anterior incision was made, midline, from a point proximal to the patella to the distal tibial tubercle. The knee was entered through a medial parapatellar approach. The patella could be displaced laterally and the knee flexed. The patellar fat pad was resected to provide better visibility. Retractors were placed medially and laterally adjacent to the tibial plateau. At a point approximately 8 cm above the patella, 2 small incisions were made with a scalpel blade and 2 long threaded pins were placed into the anterior medial femur engaging both cortices. The femoral arrays were placed over these pins and secured. At a point 8 cm distal to the tibial tubercle. 2 shorter bicortical threaded pins were placed across the anterior medial tibia and the tibial arrays placed. A checkpoint was made just proximal and medial to the medial femoral condyle and just medial to the tibial plateau. Small osteotomes were placed in the joint in both flexion and extension to determine ligamentous laxity. Initially she had quite a bit of tightness both in extension and flexion. A Chavez elevator was used to perform a release of the medial collateral ligament working anterior to posterior involving the posterior tibia. With this the knee could be nearly brought out to equal flexion gaps in full extension. The knee was then flexed with tightness identified in the medial compartment. The femur was externally rotated 3 degrees leaving only 2 mm of laxity laterally or medially. As no clear anatomy seen reasonably well approximated in this alignment that slight relative lateral laxity was excepted. In addition the femur was elevated 1 mm increasing the extension gap over flexion to facilitate her regaining extension with the noted 14 degree preop flexion contracture. The Intense[employer]ate robot was then introduced to the field and the femur and tibia cut in accordance with our plan. Lecture cautery was then applied across the posterior capsule for additional hemostasis. he posterior capsule and collateral ligaments were then injected with a solution of 100 mL of 0.2% ropivacaine, 1 mL of a 1:1000 epinephrine solution, 30 mg of Toradol, and 1 g of tranexamic acid. A trial with the above components provided excellent stability and balance through a full range of motion. A gentamicin irrigation solution of 160 mg gentamicin and in 100 mL of normal saline was used during bone cuts and to irrigate surfaces before implantation of components. The femur was then prepared for the femoral pegs of the component in the tibia for the tibial component. The femur and tibia were then press-fit into place. An osteotome was used to remove the lateral 8 mm of the patella to minimize chances of later impingement. A neurectomy was accomplished circumferentially about the patella with electrocautery and lateral osteophytes removed. Surfaces were cleaned with a gentamicin solution. The femur and tibia were then press-fit into place. Tinal polyethylene component was then snapped into place into the tibia. The knee was then soaked in a 0.35% solution. Excessive betadine was removed with suction. The extensor retinaculum was closed with a running 1 Stratafix interrupted 1 Ethibond. The subcutaneous tissues were closed with 2-0 Vicryl and the skin was closed with a running 4-0 Stratafix. The wound was covered with a Dermabond Prineo dressing. It was covered with 4xrs and a compressive Tubigauze was applied. The patient was taken to recovery room in stable condition.
--- NOTE | 2023-03-31 12:56 | PC.NURSE ---
Pt arrived to PACU, O2 at 6L/min via simple mask. Dressing to right knee C/D/I, right foot p/w/d, cap refill <3 seconds, good pedal pulse noted, able to wiggle toes, reports sensation above level L3. Ice pack applied. SCD to LLE in place and running.
--- NOTE | 2023-03-31 13:16 | PC.NURSE ---
Post op xrays obtained.
[2023-03-31] MEDS: sodium chloride 0.9% 1,000 ML 100 ML IV (16:23)
--- NOTE | 2023-03-31 16:26 | ANE.PACU2 ---
Inpatient post-anesthesia follow up: Airway intact: Yes Vital signs: Temperature 97.4 F Pulse Rate 73 Respiratory Rate 18 Blood Pressure 110/65 Pulse Oximetry 96 Oxygen Delivery Me thod Room Air Oxygen Flow Rate 6 Fraction of Inspir ed Oxygen Hydration adequate: Yes Nausea and vomiting: Yes Pain level: 1 Mental status: Baseline
[2023-03-31] MEDS: sennosides-docusate Tablet 2 TAB PO (17:42)
[2023-03-31] MEDS: CELEcoxib 200 mg Capsule PO (20:57)
[2023-04-01] MEDS: sodium chloride 0.9% 1,000 ML 100 ML IV (01:27)
[2023-04-01] MEDS: acetaminophen 500 mg Tablet 1000 MG PO (01:28)
[2023-04-01] MEDS: ceFAZolin 2,000 MG in sodium chloride 0.9% (plus) 50 ML 100 MG IV (03:28)
[2023-04-01 03:35] LABS: Hemoglobin 10.2 g/dL (11.5-15.3)
[2023-04-01 03:42] VITALS: RESP 18; O2SAT 96
[2023-04-01] MEDS: oxyCODONE 5 mg IR Tab/Cap PO (03:42)
[2023-04-01 04:00] VITALS: BP 115/75; PULSE 92; RESP 18; TEMP 36.6; O2SAT 98
[2023-04-01 07:53] VITALS: BP 116/63; PULSE 63; RESP 17; TEMP 36.7; O2SAT 95
--- NOTE | 2023-04-01 08:02 | PM.DCS ---
Discharge Providers Date of Admission: 03/31/23 13:15 Date of Discharge: April 01, 2023 Attending Provider at Admission: Yang Ga MD Attending Provider at Discharge: Yang Ga MD Diagnoses at Discharge Discharge Diagnosis (1) Status post right knee replacement: Status: Acute (2) Pre-op evaluation: Status: Acute Reason for Visit Reason for Visit: M17.11 Brief History: Concetta is a 62-year-old female with progressive knee pain due to to osteoarthritis. She did well with left total knee arthroplasty and wished to proceed with right Hospital Course Hospital Course The patient tolerated surgery well. They remained hemodynamically stable. They was begun on Lovenox, Coumadin, and foot pumps for DVT prophylaxis. The patient was mobilized with therapy beginning the day of surgery and by the first postoperative day independent with the walker. As the pain was adequately controlled and they were fully mobile they were discharged home. Physical Exam Narrative: On the day of discharge the knee incision was clean. They had no drainage. There is minimal swelling in the thigh and knee and the calf. No distal neurovascular deficits were noted Discharge Data Studies Completed and Pending Completed Studies During Hospitalization Category Date Time Status XR knee RT 1-2V [id number] Routine Exams 03/31/23 12:47 Completed Radiology Impressions Knee X-Ray 03/31/23 12:47 IMPRESSION: 1. Metallic knee replacement in good position. 2. Soft tissue postoperative edema and emphysema anterior knee 3. Otherwise No acute findings. Laboratory Results Hgb 10.2 g/dL (11.5-15.3) L 04/01/23 03:07 Vitals Last Vital Signs Temp 98.0 F 04/01/23 07:53 Pulse 63 04/01/23 07:53 Resp 17 04/01/23 07:53 BP 116/63 04/01/23 07:53 Pulse Ox 95 04/01/23 07:53 O2 Del Method Room Air 04/01/23 04:00 O2 Flow Rate 6 03/31/23 20:00 Discharge Plan Discharge Patient Disposition: Home Condition: Stable Prescriptions: New oxycodone 5 mg Tablet 5 mg PO Q4H PRN (Reason: Moderate Pain) 7 Days Qty: 30 0RF acetaminophen 500 mg Tablet 1,000 mg PO Q8H 14 Days Qty: 84 0RF celecoxib 200 mg Capsule 200 mg PO Q12H 14 Days Qty: 28 0RF gabapentin 300 mg Capsule 300 mg PO BID 7 Days Qty: 14 0RF enoxaparin 30 mg/0.3 mL Syringe 30 mg SUBCUT Q12H 5 Days Qty: 3 0RF Continued lisinopril-hydrochlorothiazide 20-12.5 mg tablet 1 tab PO DAILY Qty: 30 2RF warfarin [Coumadin] 4 mg tablet 5 mg PO DAILY pantoprazole 40 mg tablet,delayed release (DR/EC) 40 mg PO DAILY Discharge Orders: Discharge Order (Routine); Ordered 04/01/23 Ordered By: Yang Ga Other Ambulatory Orders: Physical Therapy Eval and Treat Outpatient (Order) Timeframe: 3 Days Facility: [facility] - Location: Physical Therapy Ordered By: Yang Ga Referrals: Александр Gutiérrez FNP [Physician Coding Quality Analyst] - 04/04/23 10:15 am Discharge Diet: Advance as tolerated Discharge Activity: Limit activity as instructed Patient Instructions: Opioid Safety Activity Restrictions/Additional Instructions: Okay to shower Keep Tubigauze sleeve in place for swelling. Okay to remove for hygiene. Apply FirstIce up to 20 min/hr for pain and swelling Take Celebrex twice a day for the next 15 days for pain , discontinue other anti-inflammatories Take Neurontin twice a day for 7 days. Take Tylenol 500mg (2 tabs) as needed 3 times a day for mild pain take oxycodone for breakthrough pain. Continue with Lovenox injections until heart complete.. Exercises per physical therapy. May weight-bear as tolerated on total knee arthroplasty IF HAVE ANY PROBLEMS OR QUESTIONS CALL HOSPITAL RN PLASTICS AT AND ASK TO HAVE DR. GA PAGED. Discharge Attestations Time Spent in Discharge Care*: other Quality Metrics Clinical Quality Measures [ No reported AMI, CVA or VTE this stay] Coding Level of Care Code Acute Code for Chg Fwd Diagnoses Status post right knee replacement Z96.651 Pre-op evaluation Z01.818
[2023-04-01 09:47] VITALS: BP 116/63; PULSE 63; RESP 17; TEMP 36.7; O2SAT 95
--- NOTE | 2023-04-01 11:17 | PC.OT ---
OT EVALUATION ORDERS RECEIVED. UNABLE TO EVALUATE PATIENT DUE TO DISCHARGE BEFORE EVALUATION COULD BE ATTEMPTED.
== END 2023-04-01 09:52 | disposition home or self-care (01) ==
LOC: MEDSURG 13:16
PROVIDERS: Admitting Provider Orthopaedic Surgery; PCP Clinical Nurse Specialist Adult Health; Visit Provider Orthopaedic Surgery
PROC: 8E0Y0CZ Robotic Assisted Procedure of Lower Extremity, Open Approach (ICD-10-PCS; CPT 27447; principal; 2023-03-31 09:35)
DX: M17.11 Unilateral primary osteoarthritis, right knee (principal); Z96.652 Presence of left artificial knee joint; E78.2 Mixed hyperlipidemia; I10 Essential (primary) hypertension; Z86.718 Personal history of other venous thrombosis and embolism; Z79.01 Long term (current) use of anticoagulants
CPT/HCPCS: 20985; 27447; 36415; 73560; 85018; 97110; 97116; 97161; C1776; G0378; J0171; J0690; J1100; J1580; J1885; J2250; J2370; J2704; J2795; J3010; J7030

== ENCOUNTER → 2023-05-06 13:42 | Outpatient (BNVA) | payer OTHER, SELFPAY | PROVIDERS: PCP Clinical Nurse Specialist Adult Health; Visit Provider Nurse Practitioner Family | DX: Z96.651 Presence of right artificial knee joint (principal) | CPT/HCPCS: 73560; 73565 ==

== ENCOUNTER 2024-03-31 14:29 | Outpatient (CLI) | payer SELFPAY ==
[2024-03-31 15:09] LABS: Basophils % 0.5 %; Eosinophils # 2.1 10^3/uL (0.0-0.8); Eosinophils % 27.2 %; Hematocrit 39.7 % (36-47); Lymphocytes # 1.5 10^3/uL (0.8-4.8); Lymphocytes % 19.6 %; Mean Corpuscular Hemoglobin 25.7 pg (27-33); Mean Corpuscular Volume 80.2 fl (85-98); Mean Platelet Volume 9.9 fL (7.4-10.4); Monocytes # 0.4 10^3/uL (0.2-0.9); Monocytes % 5.2 %; Neutrophils # 3.72 10^3/uL (1.8-7.7); Neutrophils % 47.2 %; Nucleated Red Blood Cells % 0 %; Platelet Count 240 10^3/cmm (157-399); Red Blood Count 4.95 10^6/uL (3.85-5.65); Red Cell Distribution Width 14.3 % (12.1-15.1); White Blood Count 7.87 10^3/uL (3.29-11.43)
[2024-03-31 15:31] LABS: Alanine Aminotransferase 13 U/L (0-33); Albumin Level 4.1 g/dL (3.5-5.2); Alkaline Phosphatase 139 U/L (35-105); Anion Gap 15.9 (5-19); Aspartate Amino Transferase 15 U/L (0-32); Blood Urea Nitrogen 10 mg/dL (8-23); Calcium 9.2 mg/dL (8.5-10.5); Carbon Dioxide 24 mmol/L (22-29); Chloride 102 mmol/L (98-107); Globulin 3.2 g/dL (1.3-4.6); Glomerular Filtration Rate 63.2 mL/min (90-130); Glucose 121 mg/dL (65-115); Osmolality Calculated 286 mOsm/kg (285-295); Potassium 3.9 mmol/L (3.5-5.1); Sodium 138 mmol/L (136-145); Total Bilirubin 0.3 mg/dL (0.15-1.2); Total Protein 7.3 g/dL (6.6-8.7)
[2024-03-31 15:54] LABS: INR 1.07 (0.8-1.2)
== END 2024-03-31 14:30 | disposition home or self-care (01) ==
LOC: LAB 14:31
PROVIDERS: PCP Nurse Practitioner Family; Visit Provider Nurse Practitioner
DX: L03.90 Cellulitis, unspecified (principal); R21 Rash and other nonspecific skin eruption; Z79.01 Long term (current) use of anticoagulants
CPT/HCPCS: 36415; 80053; 85025; 85610; 87040

== ENCOUNTER 2024-04-22 13:21 | Outpatient (CLI) | payer OTHER, SELFPAY ==
--- NOTE | 2024-04-22 13:30 | USCV_ITS ---
Concetta Velasco Age: 63 Gender: F : 1960 Exam Date: 04/22/2024 13:33 Ordering Phys: Rm Cagle Technologist: Caroline Cheng Exam Location: [facility] [place] Indication: LE PAIn Risk Factors: Previous Vascular Surgery: RIGHT LEFT BP: 126.0 / 64.00 BP: 116.0/ 63.00 0 0 Waveform Velocity (cm/s) Velocity (cm/s) Waveform Triphasic 118.4 Iliac Prox 127.0 Triphasic Triphasic 95.4 Iliac Mid 118.2 Triphasic Triphasic 117.4 Iliac Distal 99.3 Triphasic Triphasic 109.0 INFORMATICS DEVELOPER 93.0 Triphasic Triphasic 79.0 SFA Prox 109.0 Triphasic Triphasic 124.0 SFA Mid 104.0 Triphasic Triphasic SFA Dist Triphasic 133.0 114.0 Triphasic 64.0 POP 94.0 Triphasic FLIGHT AGENT 115.0 Triphasic DPA 62.0 Triphasic HEIDI 1.0 FINDINGS Unable to aquire rt HEIDI due to bandages wrapped around lower leg Patent iliac, femoral, popliteal and infrapopliteal vessels on the left side. The infrapopliteal vessels were not visualized on the right side due to bandages. Resting HEIDI 1.0 on the left side. Normal arterial Doppler waveforms and velocities bilaterally CONCLUSIONS 1. Normal resting HEIDI of 1.0 with normal arterial Doppler features suggesting no significant arterial obstruction on the left side. No unstable plaque or lesions were noted 2. Normal arterial Doppler waveforms and velocities suggesting no significant arterial obstruction on the right side up to the popliteal artery. The infrapopliteal vessels were not visualized on the right side. Dr Vandana Scruggs MD [facility] (Electronically Signed) Final Date: 23 April 2024 20:20 S
== END 2024-04-22 13:22 | disposition home or self-care (01) ==
LOC: RAD 13:21
PROVIDERS: PCP Nurse Practitioner Family; Visit Provider Nurse Practitioner
DX: L03.90 Cellulitis, unspecified (principal); I73.9 Peripheral vascular disease, unspecified
CPT/HCPCS: 93925

== ENCOUNTER → 2024-05-19 09:00 | Outpatient (BNVA) | payer OTHER, SELFPAY | PROVIDERS: PCP Nurse Practitioner; Visit Provider Nurse Practitioner Family | DX: Z86.718 Personal history of other venous thrombosis and embolism (principal) | CPT/HCPCS: 85610 ==

== ENCOUNTER 2024-05-24 16:36 | Outpatient (CLI) | payer OTHER, SELFPAY ==
--- NOTE | 2024-05-24 16:30 | USR_ITS ---
PROCEDURE INFORMATION: Exam: US Duplex Right Lower Extremity Veins, Limited Exam date and time: 05/24/2024 4:40 PM Age: 63 years old Clinical indication: Pain; Leg, lower; Right; Additional info: M79.604 - pain in right leg TECHNIQUE: Imaging protocol: Real-time duplex ultrasound of the right extremity with 2-D rogers scale, color Doppler flow and spectral waveform analysis including responses to compression and other maneuvers (when performed) with image documentation. Limited exam was focused on the right lower extremity veins. COMPARISON: [place] [id number] 04/22/2024 1:33 PM FINDINGS: Right deep veins: Unremarkable. The common femoral, femoral, proximal profunda femoral and popliteal veins as well as the visualized deep veins of the lower leg are patent without thrombus. Normal Doppler waveforms. Normal compressibility and/or augmentation response. Superficial veins: Greater saphenous vein at the saphenofemoral junction is patent without thrombus. Soft tissues: Unremarkable. US/[place] [id number] IMPRESSION: No evidence of deep vein thrombosis.
== END 2024-05-24 16:37 | disposition home or self-care (01) ==
LOC: RAD 16:36
PROVIDERS: PCP Nurse Practitioner; Visit Provider Nurse Practitioner Family
DX: M79.604 Pain in right leg (principal)
CPT/HCPCS: 85610; 93971

== ENCOUNTER → 2024-05-26 08:41 | Outpatient (BNVA) | payer OTHER, SELFPAY | PROVIDERS: PCP Nurse Practitioner Family; Visit Provider Nurse Practitioner Family | DX: Z86.718 Personal history of other venous thrombosis and embolism (principal) | CPT/HCPCS: 85610 ==